=== PATIENT | male | born 1950 ===

== ENCOUNTER 2025-01-03 05:50 | Day surgery (SDC) | payer OTHER ==
[~2025-01-03] VITALS: Ht 167.6 cm; Wt 68.0 kg
[~2025-01-03 05:50] MED LIST: ATORVASTATIN CA10 MG PO; DEXILANT60 MG PO; HYDROCHLOROTHIA25 MG PO; NORVASC5 MG PO; SYNTHROID112 MCG PO; ZESTRIL10 M1 PO
[2025-01-03] MEDS ORDERED: MIRALAX17 GM PO (11:06)
[2025-01-03] MEDS ORDERED: TRAMADOL HCL50 MG PO (11:06)
[2025-01-03] MEDS ORDERED: TYLENOL ARTHRI650 MG PO (11:06)
[2025-01-03] MEDS ORDERED: KETO10TA2 PO (11:06)
[2025-01-03] MEDS ORDERED: CEFAZOLIN SODIUM 1,000 MG VIAL IV ONE (12:15)
[2025-01-03] MEDS ORDERED: KETOROLAC TROMETHAMINE 30 MG VIAL IV ONE (12:45)
[2025-01-03] MEDS ORDERED: MORPHINE SULFATE 4 MG/ML VIAL IV ONE ×2 (13:45→14:45)
== END 2025-01-03 15:45 | disposition home or self-care (01) ==
LOC: CIR.AMB 05:50 → SURH 05:50 → O/R 05:50 → SURH 07:00 → EDSTATUS 08:45 → O/R 15:45 → CIR.AMB 15:45
PROVIDERS: ATTEND Surgery
DX: K43.0 Incisional hernia with obstruction, without gangrene (principal)
CPT/HCPCS: 49594; C1781